=== PATIENT | male | born 1970 | race African-American/Black ===

== ENCOUNTER 2017-02-25 21:04 | Inpatient (IN) | payer SELFPAY ==
[2017-02-20] MEDS: FAMOTIDINE INJ/PF 20 MG/2 ML SDV IV SCH (10:00)
[2017-02-25] MEDS ORDERED: THIAMINE HCL 100 MG in NORMAL SALINE 50 ML IV ONE (21:48)
--- NOTE | 2017-02-25 21:48 | ER Document Report ---
ED Seizure - General Chief Complaint: Probable Seizure Stated Complaint: POSSIBLE SEIZURE Time Seen by Provider: 02/25/17 21:45 Mode of Arrival: Ambulatory Information source: Patient Notes: This is a 47-year-old man with a history of alcohol abuse, alcohol withdrawal seizures, DTs. Patient was brought into the emergency room because of a seizure. the patient's sister who is at the bedside states he's been trying to drink less lately because he has a job. - HPI Patient complains to provider of: History of seizures - Related to alcohol abuse Quality of pain: No pain Severity: None Pain Level: Denies Continued on arrival to ED: No Can details of seizure be obtained/verified: No Episode witnessed (by whom): No - patient states he was with a friend, this cannot be verified Current seizure medications: Other - He has taken Dilantin in the past, but is been told that it's alcohol withdrawal seizures. Preceding symptoms/context: denies: Recent alcohol intake History of: Other - Alcohol withdrawal seizures Character of seizure: Partial loss/conscious Post-ictal symptoms: Confusion Injuries: None - Related Data Allergies/Adverse Reactions: No Known Allergies Allergy (Verified 10/21/12 15:25) Past Medical History - General Information source: Patient - Social History Smoking Status: Unknown if Ever Smoked Cigarette use (# per day): No - he denies Chew tobacco use (# tins/day): No Frequency of alcohol use: Heavy Drug Abuse: Other - He denies Lives with: Family Family History: Reviewed & Not Pertinent Patient has suicidal ideation: No Patient has homicidal ideation: No - Past Medical History Cardiac Medical History: Reports: None Pulmonary Medical History: Reports: Hx Asthma, Hx Bronchitis Neurological Medical History: Reports: Hx Seizures Endocrine Medical History: Reports: None Renal/ Medical History: Reports: None Malignancy Medical History: Reports None GI Medical History: Reports: None Musculoskeltal Medical History: Reports None Skin Medical History: Reports None Psychiatric Medical History: Reports: None Traumatic Medical History: Reports: None Infectious Medical History: Reports: None Past Surgical History: Reports: Hx Orthopedic Surgery - right shoulder surgery - Immunizations Immunizations up to date: Yes Hx Diphtheria, Pertussis, Tetanus Vaccination: Yes Review of Systems - Review of Systems Constitutional: denies: Chills, Fever EENT: No symptoms reported Cardiovascular: No symptoms reported Respiratory: No symptoms reported Gastrointestinal: No symptoms reported Genitourinary: No symptoms reported Male Genitourinary: No symptoms reported Musculoskeletal: No symptoms reported Skin: No symptoms reported Hematologic/Lymphatic: No symptoms reported Neurological/Psychological: See HPI Physical Exam - Vital signs Vitals: Resp Pulse Ox 16 96 02/25/17 21:13 02/25/17 21:13 Notes: Physical exam: GENERAL: 47-year-old man, postictal, oriented 3, no acute distress. HEAD: Atraumatic, normocephalic. EYES: Pupils equal round and reactive to light, extraocular movements intact, sclera anicteric, conjunctiva are normal. ENT: TMs normal, nares patent, oropharynx clear without exudates. Moist mucous membranes. NECK: Normal range of motion, supple without lymphadenopathy or JVD. LUNGS: Breath sounds clear to auscultation bilaterally and equal. No wheezes rales or rhonchi. HEART: Regular rate and rhythm without murmurs, rubs or gallops. ABDOMEN: Soft, normoactive bowel sounds. No tenderness to palpation. No guarding, no rebound. No masses appreciated. EXTREMITIES: Normal range of motion, no pitting or edema. No clubbing or cyanosis. NEUROLOGICAL: Cranial nerves II through XII grossly intact. Normal speech, moving all extremities, lethargic PSYCH: Patient is postictal, lethargic SKIN: Warm, Dry, normal turgor, no rashes or lesions noted. Course - Vital Signs Vital signs: Temp Pulse Resp BP Pulse Ox 20 190/103 H 97 02/26/17 01:00 02/26/17 00:48 02/25/17 23:00 - Laboratory Result Diagrams: 02/26/17 00:05 02/26/17 00:05 Laboratory results interpreted by me: 02/25/17 02/25/17 02/25/17 21:17 21:17 21:17 RBC 2.81 L Hgb 9.2 L Hct 26.9 L Lymphocytes % 11.4 L Sodium 124.6 L Potassium 5.2 H Chloride 93 L Carbon Dioxide 18 L BUN 26 H Creatinine 2.73 H Est GFR ( Amer) 31 L Est GFR (Non-Af Amer) 25 L Glucose Magnesium 1.2 L* AST 84 H Alkaline Phosphatase 147 H Urine Protein Urine Ketones Urine Blood Phenytoin < 3.0 L 05/02/26/17 02/26/17 23:50 00:05 00:05 RBC 2.90 L Hgb 9.4 L Hct 28.0 L Lymphocytes % 12.8 L Sodium 125.0 L Potassium Chloride 95 L Carbon Dioxide 18 L BUN 27 H Creatinine 2.55 H Est GFR ( Amer) 33 L Est GFR (Non-Af Amer) 27 L Glucose 112 H Magnesium AST 77 H Alkaline Phosphatase 147 H Urine Protein >=500 H Urine Ketones TRACE H Urine Blood MODERATE H Phenytoin - Diagnostic Test Radiology reviewed: Image reviewed, Reports reviewed - CT of the head shows no acute bleed. CT of the abdomen shows an absent right kidney with a prominent left kidney. No obvious kidney stones. There is a moderate reticular nodularity in the left lower lobe which may be atypical pneumonia or chronic interstitial lung disease. He does have healing left rib fractures. - EKG Interpretation by Mn Rate: Normal Rhythm: NSR - EKG shows normal sinus rhythm with a ventricular rate of 86, no acute ST-T wave changes. QTC is 464. Critical Care Note - Critical Care Note Total time excluding time spent on procedures (mins): 120 Discharge - Discharge Clinical Impression: acute renal failure (1 kidney), hyponatremia, alcohol withdrawal seizure, anemia Condition: Stable Disposition: ADMITTED INPATIENT Admitting Provider: Hospitalist Unit Admitted: [facility]
[2017-02-25] MEDS ORDERED: MAGNESIUM SULFATE/D5W 100 ML IV ONE ×2 (21:49→22:30)
[2017-02-25] MEDS ORDERED: NORMAL SALINE 1000 ML 1,000 ML IV PRN ×2 (21:51→23:58)
[2017-02-25] MEDS ORDERED: FOLIC ACID 1 MG TABLET PO ONE (21:51)
[2017-02-25] MEDS ORDERED: LORAZEPAM 1 MG TABLET PO ONE (21:51)
[2017-02-25 22:02] LABS: ABSOLUTE BASOPHILS # (AUTO) 0.1 10^3/uL (0.0-0.2); ABSOLUTE EOSINOPHILS # (AUTO) 0.1 10^3/uL (0.0-0.6); ABSOLUTE LYMPHOCYTES (AUTO) 0.5 10^3/uL (0.5-4.7); ABSOLUTE MONOCYTES (AUTO) 0.4 10^3/uL (0.1-1.4); ABSOLUTE NEUT (AUTO) 3.2 10^3/uL (1.7-8.2); BASOPHILS % (AUTO) 1.4 % (0-2); EOSINOPHILS % (AUTO) 3.4 % (0-6); HEMATOCRIT 26.9 % (37.9-51.0); HEMOGLOBIN 9.2 g/dL (13.5-17.0); HGB HCT DIFFERENCE 0.7; LYMPHOCYTES % (AUTO) 11.4 % (13-45); MEAN CORPUSCULAR HEMOGLOBIN 32.7 pg (27.0-33.4); MEAN CORPUSCULAR HGB CONC 34.2 g/dL (32.0-36.0); MEAN CORPUSCULAR VOLUME 96 fl (80-97); MONOCYTES % (AUTO) 8.2 % (3-13); RED BLOOD COUNT 2.81 10^6/uL (4.35-5.55); RED CELL DISTRIBUTION WIDTH 13.7 % (11.5-14.0); SEGMENTED NEUTROPHILS % (AUTO) 75.6 % (42-78); WHITE BLOOD COUNT 4.3 10^3/uL (4.0-10.5)
[2017-02-25 22:22] LABS: ALANINE AMINOTRANSFERASE 55 U/L (21-72); ALBUMIN 3.9 g/dL (3.5-5.0); ALKALINE PHOSPHATASE 147 U/L (38-126); ANION GAP 14 (5-19); ASPARTATE AMINO TRANSFERASE 84 U/L (17-59); BILIRUBIN,DIRECT 0.4 mg/dL (0.0-0.4); BLOOD UREA NITROGEN 26 mg/dL (7-20); CALCIUM 9.5 mg/dL (8.4-10.2); CARBON DIOXIDE 18 mmol/L (22-30); CHLORIDE 93 mmol/L (98-107); CREATININE RESULT 2.73 mg/dL (0.52-1.25); GLUCOSE 107 mg/dL (75-110); POTASSIUM 5.2 mmol/L (3.6-5.0); SODIUM 124.6 mmol/L (137-145); TOTAL PROTEIN 7.2 g/dL (6.3-8.2)
[2017-02-25 22:30] LABS: MAGNESIUM 1.2 mg/dL (1.6-2.3)
[2017-02-25] MEDS ORDERED: THIAMINE HCL INJ 200 MG/2 ML VIAL ONE (23:15)
--- NOTE | 2017-02-25 23:55 | EKG REPORT ---
SEVERITY:- ABNORMAL ECG - SINUS RHYTHM PROBABLE LEFT ATRIAL ABNORMALITY PROBABLE LEFT VENTRICULAR HYPERTROPHY ST ELEV, PROBABLE NORMAL EARLY REPOL PATTERN : Confirmed by: Lopez Newman 25-Feb-2017 23:55:01
[2017-02-26 00:06] LABS: APPEARANCE,URINE CLEAR; BILIRUBIN,URINE NEGATIVE (NEGATIVE); GLUCOSE, URINE NEGATIVE (NEGATIVE); KETONES,URINE TRACE mg/dL (NEGATIVE); LEUKOCYTE ESTERASE,URINE NEGATIVE (NEGATIVE); NITRITE,URINE NEGATIVE (NEGATIVE); PROTEIN,URINE >=500 mg/dL (NEGATIVE); URINE SPECIFIC GRAVITY 1.008; UROBILINOGEN,URINE NEGATIVE mg/dL (<2.0)
[2017-02-26 00:22] LABS: URINE BARBITURATES SCREEN NEGATIVE; URINE METHADONE SCREEN NEGATIVE; URINE OPIATES LOW NEGATIVE; URINE PHENCYCLIDINE SCREEN NEGATIVE
[2017-02-26 00:23] LABS: ABSOLUTE EOSINOPHILS # (AUTO) 0.2 10^3/uL (0.0-0.6); ABSOLUTE LYMPHOCYTES (AUTO) 0.6 10^3/uL (0.5-4.7); ABSOLUTE MONOCYTES (AUTO) 0.4 10^3/uL (0.1-1.4); ABSOLUTE NEUT (AUTO) 3.2 10^3/uL (1.7-8.2); BASOPHILS % (AUTO) 1.1 % (0-2); EOSINOPHILS % (AUTO) 4.1 % (0-6); HEMOGLOBIN 9.4 g/dL (13.5-17.0); HGB HCT DIFFERENCE 0.2; LYMPHOCYTES % (AUTO) 12.8 % (13-45); MEAN CORPUSCULAR HEMOGLOBIN 32.5 pg (27.0-33.4); MEAN CORPUSCULAR HGB CONC 33.7 g/dL (32.0-36.0); MEAN CORPUSCULAR VOLUME 97 fl (80-97); MONOCYTES % (AUTO) 9.5 % (3-13); RED CELL DISTRIBUTION WIDTH 13.1 % (11.5-14.0); SEGMENTED NEUTROPHILS % (AUTO) 72.5 % (42-78); WHITE BLOOD COUNT 4.3 10^3/uL (4.0-10.5)
[2017-02-26 00:25] LABS: PROTHROMBIN TIME 13.3 SEC (11.4-15.4)
[2017-02-26 00:38] LABS: ALANINE AMINOTRANSFERASE 63 U/L (21-72); ALBUMIN 3.7 g/dL (3.5-5.0); ALKALINE PHOSPHATASE 147 U/L (38-126); ANION GAP 12 (5-19); ASPARTATE AMINO TRANSFERASE 77 U/L (17-59); BILIRUBIN,DIRECT 0.4 mg/dL (0.0-0.4); BLOOD UREA NITROGEN 27 mg/dL (7-20); CALCIUM 8.8 mg/dL (8.4-10.2); CARBON DIOXIDE 18 mmol/L (22-30); CHLORIDE 95 mmol/L (98-107); CREATININE RESULT 2.55 mg/dL (0.52-1.25); GLUCOSE 112 mg/dL (75-110); POTASSIUM 4.9 mmol/L (3.6-5.0); TOTAL PROTEIN 7.2 g/dL (6.3-8.2)
[2017-02-26 00:39] LABS: ALCOHOL < 10 mg/dL (NONE DETECTED)
[2017-02-26] MEDS ORDERED: CLONIDINE HCL 0.2 MG TABLET PO ONE (00:49)
[2017-02-26] MEDS ORDERED: LORAZEPAM INJ 2 MG/1 ML VIAL IV ONE (01:13)
[2017-02-26] MEDS ORDERED: LABETALOL HCL INJ 20 MG/4 ML DISP.SYRIN IV ONE (01:52)
[2017-02-26] MEDS ORDERED: MAGNESIUM SULFATE/D5W 100 ML IV ONE (03:13)
[2017-02-26] MEDS ORDERED: IPRATROPIUM/ALBUTEROL 0.5-2.5 MG/3 ML AMPUL NEB PRN (04:21)
[2017-02-26] MEDS ORDERED: GLUCAGON,HUMAN RECOMB 1 MG INJ SUBCUT PRN (04:23)
[2017-02-26] MEDS ORDERED: DEXTROSE 40% GEL 15 GM TUBE PO PRN ×2 (04:23)
[2017-02-26] MEDS ORDERED: NORMAL SALINE 1000 ML 1,000 ML IV PRN (04:23)
[2017-02-26] MEDS ORDERED: DEXTROSE 50%-WATER 25 GM/50 ML DISP.SYRIN IV PRN ×2 (04:23)
[2017-02-26] MEDS ORDERED: LORAZEPAM INJ 2 MG/1 ML VIAL IV PRN (04:25)
[2017-02-26] MEDS ORDERED: ACETAMINOPHEN 650 MG SUPP.RECT PR PRN (04:29)
--- NOTE | 2017-02-26 04:59 | PDOC H&P ---
History of Present Illness Admission Date/PCP: 02/26/17 02:28 PCP ?? Patient complains of: seizure History of Present Illness: RUCHI DE OLIVEIRA is a 47 year old -[place] male with history of alcohol abuse, alcohol withdrawal seizures, and delirium tremens who presents to the emergency room for evaluation of above complaint. Patient has been discussed with emergency room physician who evaluated the patient. Patient is oriented to location and year, but is not sure why he is in the ER and can't recall the events that led to his being brought to the emergency room. He thus is able to provide no history whatsoever in terms of acute or chronic events, review of systems, personal habits, family history, etc. No friends or family are present. Old inpatient records are reviewed. Emergency room physician notes are reviewed. 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 No further information available this point in time. No further seizure activity since arrival in the emergency room. Blood pressure has been rather elevated, but is beginning to respond to treatment so far. Hospitalized on our service the second through 07/22/2011 with final diagnoses including alcohol withdrawal delirium tremens, chronic alcoholism and alcohol withdrawal seizure, among other diagnoses. History and physical and discharge summary have been reviewed. . Laboratory results are listed in [facility] and are reviewed. X-ray summary results are listed below, with full report(s) reviewed. . EKG's reviewed. No old EKGs available for comparison. Emergency room physician stated that earlier patient denied pain. When I asked him if he was having any pain, he did not respond. Social history/personal habits: No information available this point in time. Allergies/adverse reactions NKDA. Home medications Home medications initially autopopulated into [facility] [place] may not accurately reflect patient's true medications, dosages, and/or frequencies. automobile technician to reconcile medications. Unfortunately, patient can't provide any information related to his medications/ dosages/frequencies. REVIEW OF SYSTEMS: See history and present illness. No further information available this point in time. PHYSICAL EXAMINATION: 5 feet 5 inches tall. 63.5 kg. BMI 23.3 kg/m. Blood pressure 176/99. Respirations are 20 and unlabored. 100% saturation on room air. Pulse 80 and regular. Temperature not recorded on chart; skin feels normothermic. Thin somewhat chronically ill-appearing -[place] male who appears a bit older than his stated age. Drowsy. At times mumbles incoherently, but typically does not answer questions at all. Maintaining airway well. Skin is warm and dry. No grossly obvious evidence of rash in areas of skin examined. No subcutaneous nodules palpated. ENT: Hearing difficult to adequately evaluate due to his current status. Does not protrude tongue on request. Eyes: No scleral icterus. Pupils equal and reactive to light at 4 mm. [place] conjunctivae. No raccoon eyes. Neck is supple and nontender to gentle active range of motion and palpation. Midline trachea. No palpable thyroid nodule mass enlargement or tenderness. Lymphatic: No palpable cervical or clavicular nodes. Neck and lymphatic exams limited by patient body habitus. Psychiatric: Can't be adequately evaluated due to his current status. See history and present illness. Lungs: Auscultation reveals equal breath sounds bilaterally. No use of accessory respiratory muscles. Faint brief early inspiratory and expiratory wheezing diffusely bilaterally, perhaps a bit more noticeable on the left. Cardiovascular: Heart regular rate and rhythm, without gallop murmur or rub. No carotid or abdominal aortic bruits. No ankle or pedal edema. palpable dorsalis pedis pulses. Abdomen: soft, somewhat distended nontender with positive bowel sounds. Unable to adequately evaluate abdomen for masses or organomegaly due to distention. Extremities: Hands and feet are warm and dry. No calf tenderness to compression. No grossly obvious visual evidence of calf or thigh swelling. Gentle manipulation of upper and lower extremities fails to reveal any obvious evidence of injury or instability to involved major joints. Neurologic: Moves all 4 extremities grossly normally. Patellar reflexes absent. Absent Babinski. Light touch can't be adequately evaluated due to his current status. No rigidity. No ankle clonus. No nystagmus. Past Medical History Past Medical History: Patient can provide no information related to his past medical history; information obtained from review of old records. Cardiac Medical History: Reports: None Pulmonary Medical History: Reports: Asthma, Bronchitis Neurological Medical History: Reports: Seizures - Alcohol withdrawal. Endocrine Medical History: Reports: None Renal/ Medical History: Reports: None Malignancy Medical History: Reports: None GI Medical History: Reports: None Musculoskeltal Medical History: Reports: None Skin Medical History: Reports: None Psychiatric Medical History: Reports: None Traumatic Medical History: Reports: None Infectious Medical History: Reports: None Past Surgical History Past Surgical History: Reports: Orthopedic Surgery - right shoulder surgery Social History Information Source: Emergency Med Personnel, [facility] Records Lives with: Family Smoking Status: Unknown if Ever Smoked Frequency of Alcohol Use: Heavy Drugs: None - Unknown if patient uses illicit drugs or abuses prescription drugs.. - Advance Directive Resuscitation Status: Full Code Surrogate healthcare decision maker:: Uncertain; probably his sister Family History Family History: Reviewed & Not Pertinent Parental Family History Reviewed: No - patient can't provide any information. Children Family History Reviewed: No - patient can't provide any information. Sibling(s) Family History Reviewed.: No - patient can't provide any information. Medication/Allergy Home Medications: No Home Medications 02/26/17 Allergies/Adverse Reactions: No Known Allergies Allergy (Verified 10/21/12 15:25) Physical Exam Vital Signs: Temp Pulse Resp BP Pulse Ox 15 174/105 H 100 02/26/17 03:00 02/26/17 02:51 02/26/17 02:51 Intake & Output 02/25/17 02/26/17 02/27/17 00:59 00:59 00:59 Weight 63.503 kg Results Impressions: Head CT 02/25/17 23:42 IMPRESSION: No acute findings. Chest X-Ray 02/25/17 23:43 IMPRESSION: Right 7th and 8th posterior rib deformities/fracture of indeterminate age; not seen well on prior radiographs from November 2011 and July 2011. Limited or Localized CT 02/26/17 00:02 IMPRESSION: 1. Moderate reticular nodularity of the left lower lobe may indicate atypical pneumonia or chronic interstitial lung disease. 2. Healing left lower rib fractures. 3. Cholelithiasis. 4. Absent right kidney. Assessment & Plan - Diagnosis (1) ARF (acute renal failure) Qualifiers: Acute renal failure type: unspecified Qualified Code(s): N17.9 - Acute kidney failure, unspecified Is this a current diagnosis for this admission?: YesPlan: Previous labs 2011. Per Dr. Gonzalez, interpreting radiologist of CT, no evidence of hydronephrosis of the remaining left kidney. Right kidney not identified. IV fluids. Serial chemistry. Consider nephrology consult. (2) Abnormal CT scan, lung Is this a current diagnosis for this admission?: YesPlan: No outward clinical evidence of pneumonia. Outpatient follow-up. (3) Alcohol withdrawal seizure Qualifiers: Complication of substance-induced condition: with perceptual disturbance Qualified Code(s): F10.232 - Alcohol dependence with withdrawal with perceptual disturbance Is this a current diagnosis for this admission?: YesPlan: Seizure precautions. Alcohol withdrawal protocol. Knee high SCDs for DVT prophylaxis, along with subcutaneous heparin. Time spent in evaluation and management of patient: 61 minutes. (4) Anemia Qualifiers: Anemia type: unspecified type Qualified Code(s): D64.9 - Anemia, unspecified Is this a current diagnosis for this admission?: YesPlan: Prior labs 2011. Likely due at least in part to chronic disease. Follow-up CBC with differential. No need for transfusion at present time. (5) Elevated LFTs Is this a current diagnosis for this admission?: YesPlan: Likely due to alcoholic liver disease. Follow-up chemistry. (6) Hypertensive urgency Is this a current diagnosis for this admission?: YesPlan: Gradual blood pressure control. Parameters entered into admitting orders. (7) Hypomagnesemia Is this a current diagnosis for this admission?: YesPlan: Replace when necessary. Follow-up magnesium level. (8) Wheezing Is this a current diagnosis for this admission?: YesPlan: . When necessary DuoNeb. (9) Hyponatremia Is this a current diagnosis for this admission?: YesPlan: Likely due to underlying alcohol abuse. Follow-up chemistry. (10) Solitary kidney Is this a current diagnosis for this admission?: Yes (11) Abnormal EKG Is this a current diagnosis for this admission?: YesPlan: serial troponin - Inpatient Certification Based on my medical assessment, after consideration of the patient's comorbidities, presenting symptoms, or acuity I expect that the services needed warrant INPATIENT care.: Yes I certify that my determination is in accordance with my understanding of Medicare's requirements for reasonable and necessary INPATIENT services [42 CFR 412.3e].: Yes Medical Necessity: Significant Comorbidiites Make Outpatient Treatment Too Risky , Need Close Monitoring Due to Risk of Patient Decompensation, Need For IV Fluids, Need For Continuous Telemetry Monitoring, Need for Nebulizer Therapy and Monitoring of Response, Risk of Complication if Not Cared For in Hospital, Risk of Diagnosis Which Will Require Inpatient Eval/Care/Monitoring Post Hospital Care: D/C or Transfer Summary
[2017-02-26 05:47] LABS: ABSOLUTE EOSINOPHILS # (AUTO) 0.2 10^3/uL (0.0-0.6); ABSOLUTE LYMPHOCYTES (AUTO) 0.7 10^3/uL (0.5-4.7); ABSOLUTE MONOCYTES (AUTO) 0.7 10^3/uL (0.1-1.4); ABSOLUTE NEUT (AUTO) 4.2 10^3/uL (1.7-8.2); BASOPHILS % (AUTO) 0.7 % (0-2); EOSINOPHILS % (AUTO) 4.3 % (0-6); HEMATOCRIT 27.1 % (37.9-51.0); HEMOGLOBIN 9.4 g/dL (13.5-17.0); HGB HCT DIFFERENCE 1.1; LYMPHOCYTES % (AUTO) 11.7 % (13-45); MEAN CORPUSCULAR HEMOGLOBIN 33.4 pg (27.0-33.4); MEAN CORPUSCULAR HGB CONC 34.5 g/dL (32.0-36.0); MEAN CORPUSCULAR VOLUME 97 fl (80-97); MONOCYTES % (AUTO) 11.1 % (3-13); RED CELL DISTRIBUTION WIDTH 13.3 % (11.5-14.0); SEGMENTED NEUTROPHILS % (AUTO) 72.2 % (42-78); WHITE BLOOD COUNT 5.8 10^3/uL (4.0-10.5)
[2017-02-26 06:04] LABS: ALANINE AMINOTRANSFERASE 53 U/L (21-72); ALBUMIN 3.6 g/dL (3.5-5.0); ALKALINE PHOSPHATASE 137 U/L (38-126); ANION GAP 10 (5-19); ASPARTATE AMINO TRANSFERASE 71 U/L (17-59); BILIRUBIN,DIRECT 0.3 mg/dL (0.0-0.4); BILIRUBIN,TOTAL 1.2 mg/dL (0.2-1.3); BLOOD UREA NITROGEN 25 mg/dL (7-20); CALCIUM 8.7 mg/dL (8.4-10.2); CARBON DIOXIDE 20 mmol/L (22-30); CHLORIDE 99 mmol/L (98-107); CREATININE RESULT 2.41 mg/dL (0.52-1.25); GLUCOSE 85 mg/dL (75-110); PHOSPHORUS 4.6 mg/dL (2.5-4.5); POTASSIUM 4.6 mmol/L (3.6-5.0); SODIUM 128.9 mmol/L (137-145); TOTAL PROTEIN 6.9 g/dL (6.3-8.2)
[2017-02-26] MEDS: LORAZEPAM INJ 2 MG/1 ML VIAL (TAPER DOSING) IV SCH ×4 (06:37→23:55)
[2017-02-26] MEDS ORDERED: DEXTROSE 5%-NORMAL SALINE 1,000 ML IV PRN (10:07)
--- NOTE | 2017-02-26 10:41 | EKG REPORT ---
SEVERITY:- BORDERLINE ECG - SINUS RHYTHM PROBABLE LEFT ATRIAL ABNORMALITY ST ELEV, PROBABLE NORMAL EARLY REPOL PATTERN BORDERLINE PROLONGED QT INTERVAL : Confirmed by: Arina Pan MD 26-Feb-2017 10:40:59
[2017-02-26] MEDS: NORMAL SALINE 1000 ML 1,000 ML with THIAMINE HCL 100 MG, MVI, ADULT NO.1 WITH VIT K 10 ... IV SCH ×4 (11:07)
[2017-02-26] MEDS: FAMOTIDINE INJ/PF 20 MG/2 ML SDV IV SCH ×2 (11:08→23:00)
[2017-02-26] MEDS: HEPARIN SOD (PORCINE) 5,000 UNIT/ML 1 ML SYRINGE SUBCUT SCH ×2 (11:08→23:00)
--- NOTE | 2017-02-26 12:38 | PDOC PROGRESS REPORT ---
Subjective Progress Note for:: 02/26/17 Subjective:: No issues reported by nursing staff. Patient remains very confused and will not talk to me. Physical Exam Vital Signs: Temp Pulse Resp BP Pulse Ox 97.5 F 61 16 149/83 H 94 02/26/17 07:24 02/26/17 08:00 02/26/17 08:00 02/26/17 07:24 02/26/17 08:00 Intake & Output 02/25/17 02/26/17 02/27/17 06:59 06:59 06:59 Intake Total 420 Output Total 100 Balance 320 Weight 58.5 kg GENERAL: No acute distress HEENT: Conjunctiva clear, nonicteric, moist mucous membranes, no JVD, midline trachea RESPIRATORY: Clear to auscultation bilaterally, no wheezes, no rhonchi CARDIAC: Regular rate and rhythm, no murmurs/gallops/rubs ABDOMEN: Soft, nondistended, nontender, positive bowel sounds, no rebound, no guarding EXTREMETIES: No edema, cyanosis, clubbing NEUROLOGIC: Alert, disoriented, CN's grossly intact, no focal deficits SKIN: No rash, wounds PSYCH: Unusual affect Results Laboratory Results: 02/26/17 05:37 02/26/17 05:37 02/26/17 02/26/17 02/26/17 05:37 05:37 05:37 WBC 5.8 RBC 2.80 L Hgb 9.4 L Hct 27.1 L MCV 97 MCH 33.4 MCHC 34.5 RDW 13.3 Plt Count 243 Seg Neutrophils % 72.2 Lymphocytes % 11.7 L Monocytes % 11.1 Eosinophils % 4.3 Basophils % 0.7 Absolute Neutrophils 4.2 Absolute Lymphocytes 0.7 Absolute Monocytes 0.7 Absolute Eosinophils 0.2 Absolute Basophils 0.0 Retic Count (auto) 2.77 Absolute Retic 0.077 Sodium 128.9 L Potassium 4.6 Chloride 99 Carbon Dioxide 20 L Anion Gap 10 BUN 25 H Creatinine 2.41 H Est GFR ( Amer) 35 L Est GFR (Non-Af Amer) 29 L Glucose 85 Calcium 8.7 Phosphorus 4.6 H Magnesium 2.0 Iron 113.1 TIBC 256 % Saturation 44 Ferritin 111.00 Total Bilirubin 1.2 AST 71 H ALT 53 Alkaline Phosphatase 137 H Ammonia < 8.7 L Total Protein 6.9 Albumin 3.6 Vitamin B12 467.0 Folate 13.90 02/26/17 05:37 Troponin I 0.047 Impressions: Head CT 02/25/17 23:42 IMPRESSION: No acute findings. Chest X-Ray 02/25/17 23:43 IMPRESSION: Right 7th and 8th posterior rib deformities/fracture of indeterminate age; not seen well on prior radiographs from November 2011 and July 2011. Limited or Localized CT 02/26/17 00:02 IMPRESSION: 1. Moderate reticular nodularity of the left lower lobe may indicate atypical pneumonia or chronic interstitial lung disease. 2. Healing left lower rib fractures. 3. Cholelithiasis. 4. Absent right kidney. Assessment & Plan - Diagnosis (1) Alcohol withdrawal seizure Qualifiers: Complication of substance-induced condition: with perceptual disturbance Qualified Code(s): F10.232 - Alcohol dependence with withdrawal with perceptual disturbance Is this a current diagnosis for this admission?: YesPlan: Continue seizure cautions. Continue alcohol withdrawal treatment with Ativan. Hypomagnesemia treated. (2) Acute encephalopathy Is this a current diagnosis for this admission?: YesPlan: Likely related to postictal state and acute alcohol withdrawal. Continue supportive care. Continue nothing by mouth status. Continue IV fluids. Thiamine supplementation. (3) ARF (acute renal failure) Qualifiers: Acute renal failure type: unspecified Qualified Code(s): N17.9 - Acute kidney failure, unspecified Is this a current diagnosis for this admission?: YesPlan: Continue IV fluids. Check renal ultrasound. Repeat labs in the morning. (4) Abnormal EKG Is this a current diagnosis for this admission?: YesPlan: Likely secondary to early repolarization changes. (5) Anemia Qualifiers: Anemia type: unspecified type Qualified Code(s): D64.9 - Anemia, unspecified Is this a current diagnosis for this admission?: YesPlan: Iron, B-12, folic acid level normal. Possibly secondary to malnutrition. (6) Hyponatremia Is this a current diagnosis for this admission?: YesPlan: Likely secondary to chronic alcohol abuse. Continue IV normal saline while nothing by mouth. Repeat labs in the morning. (7) Solitary kidney Is this a current diagnosis for this admission?: YesPlan: Patient has absent right kidney. Obtain renal ultrasound of left kidney given acute renal failure. Avoid nephrotoxic medication. (8) Underweight Is this a current diagnosis for this admission?: Yes - Time Time Spent with patient: 35 or more minutes
[2017-02-26 14:04] LABS: ADD HIVPANEL? NO; HIV (1 AND 2) ANTIBODY NEGATIVE (NEGATIVE)
[2017-02-27] MEDS: HEPARIN SOD (PORCINE) 5,000 UNIT/ML 1 ML SYRINGE SUBCUT SCH ×2 (10:00→23:01)
[2017-02-27] MEDS: NORMAL SALINE 1000 ML 1,000 ML with THIAMINE HCL 100 MG, MVI, ADULT NO.1 WITH VIT K 10 ... IV SCH ×4 (10:00)
[2017-02-27] MEDS ORDERED: HALOPERIDOL LACTATE INJ 5 MG/1 ML VIAL ONE (11:53)
[2017-02-27] MEDS ORDERED: HYDRALAZINE HCL INJ/PF 20 MG/1 ML SDV ONE (17:30)
[2017-02-27] MEDS: FAMOTIDINE INJ/PF 20 MG/2 ML SDV IV SCH (23:00)
[2017-02-28] MEDS: LORAZEPAM INJ 2 MG/1 ML VIAL (TAPER DOSING) IV SCH ×4 (05:20→23:33)
[2017-02-28 06:41] LABS: HEMATOCRIT 29.1 % (37.9-51.0); HEMOGLOBIN 9.9 g/dL (13.5-17.0); HGB HCT DIFFERENCE 0.6; MEAN CORPUSCULAR HEMOGLOBIN 33.3 pg (27.0-33.4); MEAN CORPUSCULAR VOLUME 98 fl (80-97); RED BLOOD COUNT 2.98 10^6/uL (4.35-5.55); RED CELL DISTRIBUTION WIDTH 14.1 % (11.5-14.0); WHITE BLOOD COUNT 6.1 10^3/uL (4.0-10.5)
[2017-02-28 06:59] LABS: ALANINE AMINOTRANSFERASE 60 U/L (21-72); ALBUMIN 3.8 g/dL (3.5-5.0); ALKALINE PHOSPHATASE 149 U/L (38-126); ANION GAP 15 (5-19); ASPARTATE AMINO TRANSFERASE 67 U/L (17-59); BILIRUBIN,DIRECT 0.5 mg/dL (0.0-0.4); BILIRUBIN,TOTAL 1.6 mg/dL (0.2-1.3); BLOOD UREA NITROGEN 21 mg/dL (7-20); CALCIUM 9.4 mg/dL (8.4-10.2); CARBON DIOXIDE 17 mmol/L (22-30); CHLORIDE 109 mmol/L (98-107); CREATININE RESULT 2.33 mg/dL (0.52-1.25); GLUCOSE 108 mg/dL (75-110); MAGNESIUM 1.5 mg/dL (1.6-2.3); SODIUM 141.1 mmol/L (137-145); TOTAL PROTEIN 7.2 g/dL (6.3-8.2)
[2017-02-28 07:57] LABS: ABSOLUTE EOSINOPHILS # (AUTO) 0.4 10^3/uL (0.0-0.6); ABSOLUTE LYMPHOCYTES (AUTO) 0.9 10^3/uL (0.5-4.7); ABSOLUTE MONOCYTES (AUTO) 0.4 10^3/uL (0.1-1.4); ABSOLUTE NEUT (AUTO) 2.6 10^3/uL (1.7-8.2); BASOPHILS % (AUTO) 0.8 % (0-2); EOSINOPHILS % (AUTO) 8.7 % (0-6); HEMATOCRIT 25.2 % (37.9-51.0); HEMOGLOBIN 8.7 g/dL (13.5-17.0); HGB HCT DIFFERENCE 0.9; MEAN CORPUSCULAR HEMOGLOBIN 33.4 pg (27.0-33.4); MEAN CORPUSCULAR HGB CONC 34.7 g/dL (32.0-36.0); MEAN CORPUSCULAR VOLUME 96 fl (80-97); MONOCYTES % (AUTO) 8.3 % (3-13); RED BLOOD COUNT 2.62 10^6/uL (4.35-5.55); RED CELL DISTRIBUTION WIDTH 13.9 % (11.5-14.0); SEGMENTED NEUTROPHILS % (AUTO) 60.2 % (42-78); WHITE BLOOD COUNT 4.3 10^3/uL (4.0-10.5)
--- NOTE | 2017-02-28 08:32 | PROGRESS NOTE E ---
Progress Note NAME: RUCHI DE OLIVEIRA : 1970 AGE: 47Y DATE: 02/27/2017 ROOM: 307 TIME SPENT MANAGING PATIENT: Thirty-five minutes. SUBJECTIVE: The patient is in overt DTs. He has pulled out his IV and wandering around the room, trying to jump over his bed. He has been resistant to having another IV placed. I cannot obtain a reasonable history from patient, as he is psychotic from acute DTs. OBJECTIVE: VITAL SIGNS: Temperature 97.8, blood pressure 179/84, pulse 83, respirations 16, O2 sats 100% on room air. GENERAL: The patient is agitated and confused. HEENT: Oropharynx has moist mucous membranes. RESPIRATORY: Clear to auscultation. CARDIAC: Regular rate and rhythm. ABDOMEN: Soft, nontender. EXTREMITIES: Have no edema. LABORATORY DATA: White blood count 4.3, hemoglobin 8.7, platelets 232. Sodium 134, potassium 4.1, chloride 108, bicarb 17, BUN 23, creatinine 2.1. AST is 64, ALT 52, total bili of 1.56. ASSESSMENT AND PLAN: 1. ENCEPHALOPATHY SECONDARY TO ACUTE DTs. The patient will require chemical and physical restraints and 24/7 sitter. 2. ACUTE ALCOHOL WITHDRAWAL. We will put patient on Ativan p.r.n. 3. ACUTE KIDNEY INJURY. 4. ELEVATED LIVER FUNCTION TESTS. 5. ELEVATED BLOOD PRESSURE LIKELY SECONDARY TO ACUTE ALCOHOL WITHDRAWAL. 6. ANEMIA. 7. HYPONATREMIA LIKELY SECONDARY TO ALCOHOL ABUSE. DICTATING PHYSICIAN: CHEMO MOYER M.D. [id number] PHY#: [id number] [id number] JOB#: [id number] ACCT: [id number] cc: >
[2017-02-28] MEDS: HEPARIN SOD (PORCINE) 5,000 UNIT/ML 1 ML SYRINGE SUBCUT SCH ×2 (09:59→21:59)
[2017-02-28] MEDS: FAMOTIDINE INJ/PF 20 MG/2 ML SDV IV SCH (10:00)
[2017-02-28] MEDS: NORMAL SALINE 1000 ML 1,000 ML with THIAMINE HCL 100 MG, MVI, ADULT NO.1 WITH VIT K 10 ... IV SCH ×4 (10:31)
--- NOTE | 2017-02-28 12:45 | Physician Advisory Note ---
Physician Advisor ProgressNote .: Pursuant to the plan for [facility], I have reviewed the medical record for this patient. Physician Advisor Statement: Possible documentation opportunities if attending agrees: 1. "Acute metabolic acidosis due to ARF" 2. "underweight with protein-calorie malnutrition [state mild, mod, or severe] with BMI 19.3, ____[?wt loss, ?appetite loss, ]" [if possible, give specifics on intake, wt loss, loss of SQ fat & muscle mass, diminished hand casino shift manager strength, & clinical importance such as (A) nutritional assessment ordered, (B) modified diet or supplements ordered, (C) additional labs ordered, (D) prolonged wound healing time, (E) delayed infxn clearance] As always, if concerned about any unstable VS or abnormal labs, please comment on them & note what doing about them, & please document each day the potential clinical problems you are concerned could occur if pt not kept in hospital for tx at this time. Thanks for your help with documentation accuracy/specificity improvement! Kimberly Monroe MD [facility] Physician Advisor, Fellow of [facility]
[2017-02-28] MEDS ORDERED: AMLODIPINE BESYLATE 5 MG TABLET PO ONE (14:01)
[2017-02-28] MEDS ORDERED: DEXTROSE 5%-1/2 NORMAL SALINE 1,000 ML IV PRN (14:07)
[2017-02-28] MEDS: MAGNESIUM SULFATE/D5W 100 ML IV SCH ×2 (14:29→16:43)
[2017-02-28] MEDS ORDERED: NICOTINE 14 MG/24 HR PATCH.TD24 TD ONE (14:30)
--- NOTE | 2017-02-28 15:09 | PROGRESS NOTE E ---
Progress Note NAME: RUCHI DE OLIVEIRA : 1970 AGE: 47Y DATE: 02/28/2017 ROOM: 307 TIME SPENT: Time spent managing patient was 25 minutes. SUBJECTIVE: The patient remains intermittently confused and agitated. He had been administered Ativan prior to my evaluation, so he is relatively calm, siting on the edge of the bed, but does try to frequently get up without assistance and is somewhat ataxic. In discussion with patient, it sounds like he has been drinking since early in life. He states that this was really precipitated by his brother's tragic whenever he was 20. It sounds like when the patient was 20, his brother was killed in front of him during a shooting. The patient gets tearful and cries when discussing this issue. REVIEW OF SYSTEMS: The patient denies fever, chills, headache, chest pain, shortness of breath. OBJECTIVE: VITAL SIGNS: Temperature 97.8, blood pressure is 208/108, pulse 67, respirations 19. GENERAL: The patient is alert. He is oriented to person, place, year, month. He is a little anxious and as mentioned, tried to get up during exam without assistance and for no apparent reason. HEENT: Sclerae are nonicteric. Oropharynx has moist mucous membranes. NECK: No JVD. RESPIRATORY: Clear to auscultation bilaterally. CARDIAC: Regular rate and rhythm. No murmurs, gallops, or rubs. ABDOMEN: Soft, nontender, and nondistended. Positive bowel sounds. No rebound. No guarding. EXTREMITIES: No edema, cyanosis, or clubbing. NEUROLOGIC: Cranial nerves intact. Good strength and sensation in all 4 extremities. DIAGNOSTIC DATA: Labs: White blood count 6.1, hemoglobin 9.9, hematocrit 29.1, platelets 273. Sodium 141, potassium 4.1, chloride 109, bicarb 17, BUN 21, creatinine 2.33, glucose 108, total bilirubin 1.6, AST 67 (trending down), ALT 60, alk phos 140. ASSESSMENT AND PLAN: 1. ALCOHOL WITHDRAWAL SEIZURE. The patient is on seizure precautions. Continue withdrawal protocol with Ativan. Continue to monitor and treat hypomagnesemia. 2. ACUTE ENCEPHALOPATHY SECONDARY TO ALCOHOL WITHDRAWAL. THE PATIENT IS, AT THIS TIME, ALERT AND ORIENTED TO PERSON, PLACE, TIME, BUT DOES NOT SEEM TO BE ABLE TO MAKE COMPETENT/INFORMED DECISIONS DUE TO POOR INSIGHT AND JUDGMENT. Continue supportive care. Continue thiamine supplementation. 3. UNCONTROLLED HYPERTENSION. Start patient on Norvasc 5 mg daily. Continue p.r.n. IV labetalol. 4. HYPOMAGNESEMIA. Replace. 5. HYPONATREMIA. Resolved. Continue to monitor. 6. 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 Avoid nephrotoxic medications. 7. UNDERWEIGHT. 8. TOBACCO ABUSE. Order Nicoderm patch. 9. POSSIBLE PTSD. We will consult Psychology for evaluation. 10. RENAL FAILURE. THIS APPEARS TO BE ACUTE IN NATURE AND IS IMPROVING SLOWLY. MENTIONED ABOVE, THE PATIENT IS MISSING HIS RIGHT KIDNEY. RENAL ULTRASOUND SHOWS CHRONIC MEDICAL RENAL DISEASE PATTERN OF LEFT KIDNEY. DICTATING PHYSICIAN: CHEMO MOYER M.D. [id number] PHY#: [id number] ID: [id number] JOB#: [id number] ACCT: [id number] cc: >
[2017-02-28] MEDS: LABETALOL HCL INJ 20 MG/4 ML DISP.SYRIN IV PRN (21:01)
[2017-03-01 08:13] LABS: ABSOLUTE EOSINOPHILS # (AUTO) 0.4 10^3/uL (0.0-0.6); ABSOLUTE LYMPHOCYTES (AUTO) 1.2 10^3/uL (0.5-4.7); ABSOLUTE MONOCYTES (AUTO) 0.6 10^3/uL (0.1-1.4); ABSOLUTE NEUT (AUTO) 4.8 10^3/uL (1.7-8.2); BASOPHILS % (AUTO) 0.5 % (0-2); EOSINOPHILS % (AUTO) 5.7 % (0-6); HEMATOCRIT 26.4 % (37.9-51.0); HEMOGLOBIN 8.8 g/dL (13.5-17.0); LYMPHOCYTES % (AUTO) 17.4 % (13-45); MEAN CORPUSCULAR HGB CONC 33.4 g/dL (32.0-36.0); MEAN CORPUSCULAR VOLUME 99 fl (80-97); MONOCYTES % (AUTO) 8.3 % (3-13); RED BLOOD COUNT 2.68 10^6/uL (4.35-5.55); SEGMENTED NEUTROPHILS % (AUTO) 68.1 % (42-78)
[2017-03-01 08:23] LABS: ALANINE AMINOTRANSFERASE 51 U/L (21-72); ALBUMIN 3.6 g/dL (3.5-5.0); ALKALINE PHOSPHATASE 149 U/L (38-126); ANION GAP 12 (5-19); ASPARTATE AMINO TRANSFERASE 48 U/L (17-59); BILIRUBIN,DIRECT 0.3 mg/dL (0.0-0.4); BILIRUBIN,TOTAL 1.6 mg/dL (0.2-1.3); BLOOD UREA NITROGEN 20 mg/dL (7-20); CALCIUM 9.5 mg/dL (8.4-10.2); CARBON DIOXIDE 21 mmol/L (22-30); CHLORIDE 109 mmol/L (98-107); CREATININE RESULT 2.28 mg/dL (0.52-1.25); GLUCOSE 105 mg/dL (75-110); MAGNESIUM 1.6 mg/dL (1.6-2.3); POTASSIUM 3.7 mmol/L (3.6-5.0); SODIUM 142.4 mmol/L (137-145)
[2017-03-01 09:54] LABS: ALKALINE PHOSPHATASE 128 U/L (38-126); ANION GAP 10 (5-19); ASPARTATE AMINO TRANSFERASE 64 U/L (17-59); BLOOD UREA NITROGEN 23 mg/dL (7-20); CARBON DIOXIDE 17 mmol/L (22-30); CHLORIDE 108 mmol/L (98-107); CREATININE RESULT 2.12 mg/dL (0.52-1.25); GLUCOSE 76 mg/dL (75-110); POTASSIUM 4.1 mmol/L (3.6-5.0); SODIUM 134.6 mmol/L (137-145)
[2017-03-01 09:55] LABS: ALANINE AMINOTRANSFERASE 52 U/L (21-72); BILIRUBIN,DIRECT 0.5 mg/dL (0.0-0.4); BILIRUBIN,TOTAL 1.6 mg/dL (0.2-1.3); MAGNESIUM 1.7 mg/dL (1.6-2.3); TOTAL PROTEIN 6.3 g/dL (6.3-8.2)
[2017-03-01] MEDS ORDERED: NICOTINE 14 MG/24 HR PATCH.TD24 TD SCH (10:00)
[2017-03-01] MEDS ORDERED: THIAMINE HCL 100 MG TABLET PO SCH (10:00)
[2017-03-01] MEDS: AMLODIPINE BESYLATE 5 MG TABLET PO SCH (10:08)
[2017-03-01] MEDS: HEPARIN SOD (PORCINE) 5,000 UNIT/ML 1 ML SYRINGE SUBCUT SCH ×2 (10:08→21:43)
--- NOTE | 2017-03-01 13:22 | PSYCHOLOGICAL NOTE ---
Psych Note - Psych Note Psych Note: RUCHI DE OLIVEIRA is a 47 year old -[place] male with history of alcohol abuse, alcohol withdrawal seizures, and delirium tremens who presents to the emergency room for evaluation of above complaint. Patient states he has back problems, has a jose in his arm, and was in the for 2-3 years "that was back in the early 90s." He disclosed that he did not just start a new job, the [employer] job was "a long time ago" 4-5 years ago. He states he has been trying to "get money from the government" and was able to clarify he has been attempting to get disability but has been unsuccessful. He disclosed that he suffers from seizures and the onset is normally from the heat or anger. He denies suicidal ideation and when asked about homicidal ideation he state; "there are different types of anger....the kind that's 'I'll kill you' and then there is the kind that's like 'Mother,I 'll kill you'" patient states he would not actually kill someone. Patient denies alcoholism and denies auditory and visual hallucinations. Patient states he is not interested in resources for sobriety. Clinician notes the patient's attending nurse came in and asked what the patient wanted for breakfast, patient's presentation changed. He started to demonstrate orientation difficulties, demonstrating confusion with what she was asking and conversational speech became unintelligible. Patient asked for gin with is breakfast. Once the attending nurse left, the patient was able to engage with the patient; however, orientation to circumstance was still suffering. Patient stated "thank you from talking with me, I hope you can help me with my disability." It is noted that patient no longer demonstrated confusion or had unintelligible conversational speech. Patient is alert and orientated to person. Orientation to time place and circumstance questionable. Mood is euthymic with congruent affect. Denies suicidal and homicidal ideation. Patient denies auditory visual hallucinations. Patient is not demonstrating any behavior to indicate responding to internal stimuli. I.e. making good eye contact and linear conversation. No delusions are noted at this time; clinician notes patient information does need to be verified. Patch was well-maintained. Intellectual abilities appear to be within average range. Thought process is organized and linear however does wax and wane. Attention and concentration are fair. Insight, judgment, impulse control are poor. 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 Patient is demonstrating waxing and waning of orienation. there is a reported history of delirium secondary to alcohol withdrawal. It is currently unclear the cause of the patient's current presentation and possible psychosis. Re-evaluation will be conducted. Dr. Sierra was consulted on the care and management of this patient; attending physician is in agreement with recommendations and disposition.
[2017-03-01] MEDS ORDERED: OLANZAPINE INJ/PF 10 MG SDV IM ONE (13:30)
[2017-03-01] MEDS ORDERED: LORAZEPAM 1 MG TABLET PO PRN (14:03)
[2017-03-01] MEDS ORDERED: DIPHENHYDRAMINE HCL 50 MG CAPSULE PO ONE (14:30)
[2017-03-01] MEDS ORDERED: CLONIDINE 0.1 MG/24 HR PATCH.TDWK TD ONE (15:00)
[2017-03-01] MEDS: LORAZEPAM 24 MG/240 ML BAG IV PRN ×2 (16:33→22:23)
[2017-03-01] MEDS: POTASSI CL 20 MEQ/D5-1/2NS 1L 1,000 ML IV PRN (16:51)
--- NOTE | 2017-03-01 17:39 | PROGRESS NOTE E ---
Progress Note NAME: RUCHI DE OLIVEIRA : 1970 AGE: 47Y DATE: 03/01/2017 ROOM: 609 TIME SPENT MANAGING PATIENT: Thirty-five minutes. SUBJECTIVE: The patient has been completely psychotic, agitated, and combative over the past 24 hours. He has pulled out his IV, tried to hit nursing staff. He keeps trying to leave his bed and room without assistance. I cannot obtain a reasonable history from patient due to psychosis. He does talk about visual hallucinations that he has been having. OBJECTIVE: VITAL SIGNS: Temperature 98.0. Blood pressure 183/112. Pulse 97. Respirations 18. GENERAL: He is anxious and wondering about his room and trying to leave his room constantly, disoriented. RESPIRATORY: Clear to auscultation. CARDIAC: Regular rate and rhythm. ABDOMEN: Soft, nontender. EXTREMITIES: No edema. LABORATORIES: White blood count 7.0, hemoglobin 8.8, hematocrit 26.4, platelets 262,000. Sodium 142, potassium 3.7, chloride 109, bicarbonate 21, BUN 20, creatinine 2.28, magnesium 1.6, total bilirubin 1.6, AST 48, ALT 51. ASSESSMENT AND PLAN: 1. ACUTE ENCEPHALOPATHY, LIKELY SECONDARY TO ALCOHOL WITHDRAWAL. The patient will be transferred to the intensive care unit and placed on an Ativan drip. He will be placed in soft limb restraints to prevent self-injury and also to prevent him from pulling out IV lines as he has done this on several occasions this admission. 2. ALCOHOL ABUSE/WITHDRAWAL. Ativan drip as mentioned above. IV thiamine. I am beginning to wonder if patient does not have a component of Werneckii's encephalopathy or alcohol-related dementia. 3. UNCONTROLLED HYPERTENSION. This is probably worsened by acute alcohol withdrawal. Continue Norvasc 5 mg daily. I will put patient on a Catapres patch. Continue IV labetalol p.r.n. 4. HYPOMAGNESEMIA. Replace as needed. 5. HYPONATREMIA. Corrected. 6. SOLITARY KIDNEY. The patient has an absent right kidney on ultrasound. Avoid nephrotoxic medications. 7. UNDERWEIGHT. 8. TOBACCO USE. 9. POSSIBLE PTSD. Psychology to evaluate once the patient is not acutely encephalopathic. 10. ACUTE ON CHRONIC KIDNEY DISEASE. I am not sure what patient's true baseline I. His kidney function has improved slightly from admission but seems to have plateaued out at around the 2.1 to 2.3 range. A renal ultrasound showed the patient has an absent right kidney and medical renal disease in the left kidney. DICTATING PHYSICIAN: CHEMO MOYER M.D. [id number] PHY#: [id number] ID: [id number] JOB#: [id number] ACCT: [id number] cc:CHEMO MOYER >
[2017-03-01] MEDS: LABETALOL HCL INJ 20 MG/4 ML DISP.SYRIN IV PRN ×2 (18:08→23:58)
[2017-03-01] MEDS ORDERED: OLANZAPINE 5 MG TABLET PO SCH (22:00)
[2017-03-02] MEDS: POTASSI CL 20 MEQ/D5-1/2NS 1L 1,000 ML IV PRN ×3 (02:33→22:53)
[2017-03-02 04:40] LABS: ABSOLUTE EOSINOPHILS # (AUTO) 0.3 10^3/uL (0.0-0.6); ABSOLUTE LYMPHOCYTES (AUTO) 1.4 10^3/uL (0.5-4.7); ABSOLUTE MONOCYTES (AUTO) 0.5 10^3/uL (0.1-1.4); ABSOLUTE NEUT (AUTO) 2.7 10^3/uL (1.7-8.2); BASOPHILS % (AUTO) 0.9 % (0-2); EOSINOPHILS % (AUTO) 6.9 % (0-6); HEMATOCRIT 24.3 % (37.9-51.0); HEMOGLOBIN 8.2 g/dL (13.5-17.0); HGB HCT DIFFERENCE 0.3; LYMPHOCYTES % (AUTO) 28.4 % (13-45); MEAN CORPUSCULAR HEMOGLOBIN 32.8 pg (27.0-33.4); MEAN CORPUSCULAR HGB CONC 33.7 g/dL (32.0-36.0); MEAN CORPUSCULAR VOLUME 97 fl (80-97); MONOCYTES % (AUTO) 9.3 % (3-13); RED CELL DISTRIBUTION WIDTH 13.9 % (11.5-14.0); SEGMENTED NEUTROPHILS % (AUTO) 54.5 % (42-78); WHITE BLOOD COUNT 4.9 10^3/uL (4.0-10.5)
[2017-03-02 04:47] LABS: ANION GAP 7 (5-19); BLOOD UREA NITROGEN 19 mg/dL (7-20); CALCIUM 8.7 mg/dL (8.4-10.2); CARBON DIOXIDE 23 mmol/L (22-30); CHLORIDE 110 mmol/L (98-107); GLUCOSE 105 mg/dL (75-110); MAGNESIUM 1.3 mg/dL (1.6-2.3); POTASSIUM 3.5 mmol/L (3.6-5.0); SODIUM 139.7 mmol/L (137-145)
[2017-03-02] MEDS ORDERED: LORAZEPAM INJ 2 MG/1 ML VIAL IV PRN (08:20)
[2017-03-02] MEDS ORDERED: MAGNESIUM SULFATE 4 GM/100 ML RTUPB IV ONE (09:00)
[2017-03-02] MEDS ORDERED: POTASSIUM CHLORIDE 10 MEQ TABLET.SA PO ONE (09:00)
[2017-03-02] MEDS: HEPARIN SOD (PORCINE) 5,000 UNIT/ML 1 ML SYRINGE SUBCUT SCH ×2 (09:16→22:18)
[2017-03-02] MEDS: THIAMINE HCL 100 MG in NORMAL SALINE 50 ML IV SCH (09:23)
[2017-03-02] MEDS: NICOTINE 21 MG/24 HR PATCH.TD24 TD SCH (10:28)
[2017-03-02] MEDS: LABETALOL HCL INJ 20 MG/4 ML DISP.SYRIN IV PRN (10:32)
[2017-03-02] MEDS: AMLODIPINE BESYLATE 5 MG TABLET PO SCH (10:35)
[2017-03-02] MEDS: POTASSI CL 20 MEQ/50 ML RIDER 20 MEQ/50 ML RTUPB IV SCH ×2 (12:28→13:22)
[2017-03-02] MEDS ORDERED: AMLODIPINE BESYLATE 5 MG TABLET PO ONE (15:00)
--- NOTE | 2017-03-02 15:13 | PDOC PROGRESS REPORT ---
Subjective Progress Note for:: 03/02/17 Subjective:: Patient seen on morning rounds. He is sleeping soundly in bed. She does arouse to verbal stimuli. He is oriented to person and place, but not to time. Nursing reports no agitation overnight. He was seen by psychiatry yesterday and found to have poor insight due to alcohol withdrawal. They recommended continuing to IVC him. He required IV Ativan drip earlier in the day due to increased agitation and hallucinations. He presently is cooperative. He is unable to do review of systems because of his sedation. Physical Exam Vital Signs: Temp Pulse Resp BP Pulse Ox 97.0 F 69 19 167/103 H 100 03/02/17 13:30 03/02/17 08:00 03/02/17 13:30 03/02/17 13:30 03/02/17 13:30 Intake & Output 03/01/17 03/02/17 03/03/17 06:59 06:59 06:59 Intake Total 794 1961 Output Total 275 1305 335 Balance 519 656 -335 Weight 55.4 kg 52.1 kg General appearance: PRESENT: no acute distress, thin, well-developed Head exam: PRESENT: atraumatic, normocephalic Eye exam: PRESENT: conjunctiva pink, EOMI, PERRLA. ABSENT: scleral icterus Ear exam: PRESENT: normal external ear exam Mouth exam: PRESENT: moist, tongue midline Teeth exam: PRESENT: edentulous Respiratory exam: PRESENT: clear to auscultation rubén. ABSENT: rales, rhonchi, wheezes Cardiovascular exam: PRESENT: RRR. ABSENT: diastolic murmur, rubs, systolic murmur Pulses: PRESENT: normal dorsalis pedis pul Vascular exam: PRESENT: normal capillary refill GI/Abdominal exam: PRESENT: normal bowel sounds, soft. ABSENT: distended, guarding, mass, organolmegaly, rebound, tenderness Rectal exam: PRESENT: deferred Extremities exam: PRESENT: full ROM. ABSENT: calf tenderness, clubbing, pedal edema Neurological exam: PRESENT: alert, awake, oriented to person, oriented to place , CN II-XII grossly intact. ABSENT: motor sensory deficit Psychiatric exam: PRESENT: flat affect Skin exam: PRESENT: dry, intact, warm. ABSENT: cyanosis, rash Results Laboratory Results: 03/02/17 04:25 03/02/17 04:25 03/02/17 03/02/17 04:25 04:25 WBC 4.9 RBC 2.50 L Hgb 8.2 L Hct 24.3 L MCV 97 MCH 32.8 MCHC 33.7 RDW 13.9 Plt Count 231 Seg Neutrophils % 54.5 Lymphocytes % 28.4 Monocytes % 9.3 Eosinophils % 6.9 H Basophils % 0.9 Absolute Neutrophils 2.7 Absolute Lymphocytes 1.4 Absolute Monocytes 0.5 Absolute Eosinophils 0.3 Absolute Basophils 0.0 Sodium 139.7 Potassium 3.5 L Chloride 110 H Carbon Dioxide 23 Anion Gap 7 BUN 19 Creatinine 2.10 H Est GFR ( Amer) 42 L Est GFR (Non-Af Amer) 34 L Glucose 105 Calcium 8.7 Magnesium 1.3 L 02/26/17 02/26/17 05:37 11:54 Troponin I 0.047 0.028 Impressions: Head CT 02/25/17 23:42 IMPRESSION: No acute findings. Chest X-Ray 02/25/17 23:43 IMPRESSION: Right 7th and 8th posterior rib deformities/fracture of indeterminate age; not seen well on prior radiographs from November 2011 and July 2011. Renal Ultrasound 02/26/17 00:00 IMPRESSION: No right kidney identified. Chronic medical renal disease pattern of the left kidney. Limited or Localized CT 02/26/17 00:02 IMPRESSION: 1. Moderate reticular nodularity of the left lower lobe may indicate atypical pneumonia or chronic interstitial lung disease. 2. Healing left lower rib fractures. 3. Cholelithiasis. 4. Absent right kidney. Assessment & Plan - Diagnosis (1) Acute encephalopathy Is this a current diagnosis for this admission?: Yes (2) Alcohol withdrawal seizure Qualifiers: Complication of substance-induced condition: with perceptual disturbance Qualified Code(s): F10.232 - Alcohol dependence with withdrawal with perceptual disturbance Is this a current diagnosis for this admission?: YesPlan: Likely secondary to alcoholism, questionable Wernicke's encephalopathy. He is off the IV infusion presently. He is ordered Ativan as needed IV. (3) Alcohol abuse Is this a current diagnosis for this admission?: YesPlan: Continue thiamine supplement, as needed anxiolytics (4) Protein-calorie malnutrition, severe Is this a current diagnosis for this admission?: YesPlan: Patient has a BMI of 17. Most likely associated with poor nutrition secondary to his alcoholism. He is eating here and given protein supplements with each meal. (5) Metabolic acidosis Is this a current diagnosis for this admission?: YesPlan: Secondary to acute on chronic kidney injury.. This is improving (6) ARF (acute renal failure) Qualifiers: Acute renal failure type: unspecified Qualified Code(s): N17.9 - Acute kidney failure, unspecified Is this a current diagnosis for this admission?: YesPlan: Patient was found to have an absent right kidney, mild hypertensive renal disease on the left. Will avoid nephrotoxic agents and dosages (7) Hypomagnesemia Is this a current diagnosis for this admission?: YesPlan: Repleted (8) Hyponatremia Is this a current diagnosis for this admission?: YesPlan: Secondary to alcoholism is improving. - Time Time Spent with patient: 25-34 minutes Critical Time spent with patient: 15-24 minutes Medications reviewed and adjusted accordingly: Yes
--- NOTE | 2017-03-02 16:57 | PSYCHOLOGICAL NOTE ---
Psych Note - Psych Note Psych Note: RUCHI DE OLIVEIRA is a 47 year old -[place] male with history of alcohol abuse, alcohol withdrawal seizures, and delirium tremens who presents to the emergency room for evaluation of above complaint. Clinician conducted checking with patient Patient disclosed that he went to work is normal and it was really hot. He continued disclosed that he was moving things around working hard. He stated that while his boss checked on a another job site he continued to work. Patient disclosed that after work about 6:30 in the evening they had at home however ended up coming to [facility]. He continued disclosed that "Bernard said I had a seizure." Patient disclosed that when he works really hard he has to sit down frequently. This is the first time the patient has been able to fully discuss the events leading up to [facility]. However patient started to deteriorate in his cognitive abilities disclosing that the current month was March. Patient was identified that is currently 2016. When asked if he knows what building he is in a disclose "they tell me at the hospital that does not look like hospital." When asked what it looks like patient stated "it has been remodeled." When asked what makes an apple and a banana similar the patient had difficulty stating it is hard to eat apples but if it cut in half he can eat it. Patient only responded he was not sure. When asked the similarity between a bicycle and train the patient disclosed "the train is quicker." When the patient was asked who the president is he disclosed Gigi. When it was explained that the president was trump patient became visibly upset and shock. When asked if he the president was after Ggii he stated "I should know this, he was a black one." Was asked his date and he responded 1970. Patient was unable to successfully write his name without checking when his last name was on his ID band bracelet is also noted the patient attempted to draw a clock and was unsuccessful. Patient is alert. Orientation is circumstance. Mood is euthymic with congruent affect. Denies suicidal and homicidal ideation. Patient denies auditory visual hallucinations. Patient is not demonstrating any behavior to indicate responding to internal stimuli. I.e. making good eye contact and linear conversation. No delusions are noted at this time. Eye contact was well- maintained. Intellectual abilities appear to be within average range. These appear to be impaired at this time. 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 Patient is demonstrating waxing and waning of orienation. there is a reported history of delirium secondary to alcohol withdrawal. Appears to be oriented to circumstance today however his cognitive functioning has demonstrated deterioration. Patient was unable to remember his last name. Patient was unable to make associations questions correctly. Re-evaluation will be conducted. Dr. Sierra was consulted on the care and management of this patient ; attending physician is in agreement with recommendations and disposition.
[2017-03-03 05:01] LABS: ABSOLUTE BASOPHILS # (AUTO) 0.1 10^3/uL (0.0-0.2); ABSOLUTE EOSINOPHILS # (AUTO) 0.4 10^3/uL (0.0-0.6); ABSOLUTE LYMPHOCYTES (AUTO) 1.4 10^3/uL (0.5-4.7); ABSOLUTE MONOCYTES (AUTO) 0.6 10^3/uL (0.1-1.4); ABSOLUTE NEUT (AUTO) 3.7 10^3/uL (1.7-8.2); BASOPHILS % (AUTO) 1.3 % (0-2); EOSINOPHILS % (AUTO) 6.2 % (0-6); HEMATOCRIT 23.4 % (37.9-51.0); HEMOGLOBIN 8.1 g/dL (13.5-17.0); HGB HCT DIFFERENCE 0.9; LYMPHOCYTES % (AUTO) 22.5 % (13-45); MEAN CORPUSCULAR HEMOGLOBIN 33.5 pg (27.0-33.4); MEAN CORPUSCULAR HGB CONC 34.5 g/dL (32.0-36.0); MEAN CORPUSCULAR VOLUME 97 fl (80-97); MONOCYTES % (AUTO) 9.9 % (3-13); RED BLOOD COUNT 2.41 10^6/uL (4.35-5.55); RED CELL DISTRIBUTION WIDTH 13.9 % (11.5-14.0); SEGMENTED NEUTROPHILS % (AUTO) 60.1 % (42-78); WHITE BLOOD COUNT 6.1 10^3/uL (4.0-10.5)
[2017-03-03 05:23] LABS: ALANINE AMINOTRANSFERASE 45 U/L (21-72); ALBUMIN 2.7 g/dL (3.5-5.0); ALKALINE PHOSPHATASE 116 U/L (38-126); ANION GAP 6 (5-19); ASPARTATE AMINO TRANSFERASE 25 U/L (17-59); BILIRUBIN,DIRECT 0.4 mg/dL (0.0-0.4); BILIRUBIN,TOTAL 0.6 mg/dL (0.2-1.3); BLOOD UREA NITROGEN 21 mg/dL (7-20); CALCIUM 8.3 mg/dL (8.4-10.2); CARBON DIOXIDE 17 mmol/L (22-30); CHLORIDE 111 mmol/L (98-107); CREATININE RESULT 2.33 mg/dL (0.52-1.25); GLUCOSE 118 mg/dL (75-110); POTASSIUM 4.6 mmol/L (3.6-5.0); SODIUM 134.3 mmol/L (137-145); TOTAL PROTEIN 5.6 g/dL (6.3-8.2)
[2017-03-03] MEDS ORDERED: NORMAL SALINE 1000 ML 1,000 ML IV PRN (07:39)
--- NOTE | 2017-03-03 08:12 | PDOC PROGRESS REPORT ---
Subjective Progress Note for:: 03/03/17 Subjective:: Patient seen on morning rounds. He is eating breakfast. He has been off the ativan drip since yesterday am and has been cooperative. He has periods of confusion. He is oriented to person and place, but not to time. He was seen by psychiatry yesterday and found to have poor insight due to alcohol withdrawal. They recommended continuing to IVC him. He is unable to do review of systems because of his sedation. Physical Exam Vital Signs: Temp Pulse Resp BP Pulse Ox 98.4 F 80 19 144/83 H 98 03/03/17 06:01 03/02/17 20:00 03/03/17 06:01 03/03/17 06:00 03/03/17 06:01 Intake & Output 03/02/17 03/03/17 03/04/17 06:59 06:59 06:59 Intake Total 1961 3251 Output Total 1305 1190 Balance 656 2061 Weight 52.1 kg 53.2 kg General appearance: PRESENT: no acute distress, thin, well-developed Head exam: PRESENT: atraumatic, normocephalic Eye exam: PRESENT: conjunctiva pink, EOMI, PERRLA. ABSENT: scleral icterus Ear exam: PRESENT: normal external ear exam Mouth exam: PRESENT: moist, tongue midline Neck exam: ABSENT: carotid bruit, JVD, lymphadenopathy, thyromegaly Respiratory exam: PRESENT: clear to auscultation rubén. ABSENT: rales, rhonchi, wheezes Cardiovascular exam: PRESENT: RRR. ABSENT: diastolic murmur, rubs, systolic murmur Pulses: PRESENT: normal dorsalis pedis pul Vascular exam: PRESENT: normal capillary refill GI/Abdominal exam: PRESENT: normal bowel sounds, soft. ABSENT: distended, guarding, mass, organolmegaly, rebound, tenderness Rectal exam: PRESENT: deferred Extremities exam: PRESENT: full ROM. ABSENT: calf tenderness, clubbing, pedal edema Musculoskeletal exam: PRESENT: full ROM, normal inspection Neurological exam: PRESENT: alert, altered, oriented to person, oriented to situation, CN II-XII grossly intact Psychiatric exam: PRESENT: flat affect Skin exam: PRESENT: dry, intact, warm. ABSENT: cyanosis, rash Results Laboratory Results: 03/03/17 04:46 03/03/17 04:46 03/03/17 03/03/17 04:46 04:46 WBC 6.1 RBC 2.41 L Hgb 8.1 L Hct 23.4 L MCV 97 MCH 33.5 H MCHC 34.5 RDW 13.9 Plt Count 235 Seg Neutrophils % 60.1 Lymphocytes % 22.5 Monocytes % 9.9 Eosinophils % 6.2 H Basophils % 1.3 Absolute Neutrophils 3.7 Absolute Lymphocytes 1.4 Absolute Monocytes 0.6 Absolute Eosinophils 0.4 Absolute Basophils 0.1 Sodium 134.3 L Potassium 4.6 Chloride 111 H Carbon Dioxide 17 L Anion Gap 6 BUN 21 H Creatinine 2.33 H Est GFR ( Amer) 37 L Est GFR (Non-Af Amer) 30 L Glucose 118 H Calcium 8.3 L Total Bilirubin 0.6 AST 25 ALT 45 Alkaline Phosphatase 116 Total Protein 5.6 L Albumin 2.7 L 02/26/17 02/26/17 05:37 11:54 Troponin I 0.047 0.028 Impressions: Head CT 02/25/17 23:42 IMPRESSION: No acute findings. Chest X-Ray 02/25/17 23:43 IMPRESSION: Right 7th and 8th posterior rib deformities/fracture of indeterminate age; not seen well on prior radiographs from November 2011 and July 2011. Renal Ultrasound 02/26/17 00:00 IMPRESSION: No right kidney identified. Chronic medical renal disease pattern of the left kidney. Limited or Localized CT 02/26/17 00:02 IMPRESSION: 1. Moderate reticular nodularity of the left lower lobe may indicate atypical pneumonia or chronic interstitial lung disease. 2. Healing left lower rib fractures. 3. Cholelithiasis. 4. Absent right kidney. Assessment & Plan - Diagnosis (1) Acute encephalopathy Is this a current diagnosis for this admission?: YesPlan: Improving. He is cooperative, confused to time and at times situation (2) Alcohol withdrawal seizure Qualifiers: Complication of substance-induced condition: with perceptual disturbance Qualified Code(s): F10.232 - Alcohol dependence with withdrawal with perceptual disturbance Is this a current diagnosis for this admission?: YesPlan: Likely secondary to alcoholism, questionable Wernicke's encephalopathy. He is off the IV infusion presently. He is ordered Ativan as needed IV. (3) Alcohol abuse Is this a current diagnosis for this admission?: YesPlan: Continue thiamine supplement, as needed anxiolytics (4) Protein-calorie malnutrition, severe Is this a current diagnosis for this admission?: YesPlan: Patient has a BMI of 17. Most likely associated with poor nutrition secondary to his alcoholism. He is eating here and given protein supplements with each meal. (5) Metabolic acidosis Is this a current diagnosis for this admission?: YesPlan: Secondary to acute on chronic kidney injury.. This is improving (6) ARF (acute renal failure) Qualifiers: Acute renal failure type: unspecified Qualified Code(s): N17.9 - Acute kidney failure, unspecified Is this a current diagnosis for this admission?: YesPlan: Patient was found to have an absent right kidney, mild hypertensive renal disease on the left. Will avoid nephrotoxic agents and dosages (7) Hypomagnesemia Is this a current diagnosis for this admission?: YesPlan: Repleted (8) Hyponatremia Is this a current diagnosis for this admission?: YesPlan: Secondary to alcoholism is improving. - Time Time Spent with patient: 25-34 minutes Critical Time spent with patient: 15-24 minutes Medications reviewed and adjusted accordingly: Yes
[2017-03-03] MEDS: AMLODIPINE BESYLATE 5 MG TABLET PO SCH (09:42)
[2017-03-03] MEDS: HEPARIN SOD (PORCINE) 5,000 UNIT/ML 1 ML SYRINGE SUBCUT SCH ×2 (09:43→21:15)
[2017-03-03] MEDS: NICOTINE 21 MG/24 HR PATCH.TD24 TD SCH (09:43)
[2017-03-03] MEDS: THIAMINE HCL 100 MG in NORMAL SALINE 50 ML IV SCH (09:43)
[2017-03-04 04:36] LABS: ABSOLUTE EOSINOPHILS # (AUTO) 0.3 10^3/uL (0.0-0.6); ABSOLUTE LYMPHOCYTES (AUTO) 1.4 10^3/uL (0.5-4.7); ABSOLUTE MONOCYTES (AUTO) 0.7 10^3/uL (0.1-1.4); ABSOLUTE NEUT (AUTO) 2.2 10^3/uL (1.7-8.2); BASOPHILS % (AUTO) 0.9 % (0-2); EOSINOPHILS % (AUTO) 5.9 % (0-6); HEMATOCRIT 23.8 % (37.9-51.0); HGB HCT DIFFERENCE -0.1; LYMPHOCYTES % (AUTO) 30.1 % (13-45); MEAN CORPUSCULAR HEMOGLOBIN 32.5 pg (27.0-33.4); MEAN CORPUSCULAR HGB CONC 33.4 g/dL (32.0-36.0); MEAN CORPUSCULAR VOLUME 98 fl (80-97); MONOCYTES % (AUTO) 15.1 % (3-13); RED BLOOD COUNT 2.44 10^6/uL (4.35-5.55); RED CELL DISTRIBUTION WIDTH 13.6 % (11.5-14.0); WHITE BLOOD COUNT 4.6 10^3/uL (4.0-10.5)
[2017-03-04 04:46] LABS: HEMOGLOBIN 7.9 g/dL (13.5-17.0)
[2017-03-04 05:09] LABS: BLOOD UREA NITROGEN 24 mg/dL (7-20); CALCIUM 8.8 mg/dL (8.4-10.2); CREATININE RESULT 2.55 mg/dL (0.52-1.25); GLUCOSE 92 mg/dL (75-110)
[2017-03-04 05:21] LABS: ANION GAP 7 (5-19); CARBON DIOXIDE 19 mmol/L (22-30); CHLORIDE 110 mmol/L (98-107); POTASSIUM 4.7 mmol/L (3.6-5.0); SODIUM 136.4 mmol/L (137-145)
[2017-03-04] MEDS: HEPARIN SOD (PORCINE) 5,000 UNIT/ML 1 ML SYRINGE SUBCUT SCH ×2 (10:26→21:18)
[2017-03-04] MEDS: NICOTINE 21 MG/24 HR PATCH.TD24 TD SCH (10:26)
[2017-03-04] MEDS: AMLODIPINE BESYLATE 5 MG TABLET PO SCH (10:26)
[2017-03-04] MEDS: THIAMINE HCL 100 MG in NORMAL SALINE 50 ML IV SCH (10:26)
[2017-03-04] MEDS: LABETALOL HCL INJ 20 MG/4 ML DISP.SYRIN IV PRN (23:20)
[2017-03-05] MEDS: AMLODIPINE BESYLATE 5 MG TABLET PO SCH (09:17)
[2017-03-05] MEDS: THIAMINE HCL 100 MG in NORMAL SALINE 50 ML IV SCH (09:17)
[2017-03-05] MEDS: HEPARIN SOD (PORCINE) 5,000 UNIT/ML 1 ML SYRINGE SUBCUT SCH (09:18)
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
[2017-03-05] MEDS ORDERED: AMLODIPINE BESYLATE 5 MG TABLET PO SCH (10:00)
[2017-03-05] MEDS: NICOTINE 21 MG/24 HR PATCH.TD24 TD SCH (10:30)
[2017-03-05 11:51] VITALS: BP 177/102
--- NOTE | 2017-03-05 15:27 | PDOC DISCHARGE SUMMARY ---
General - Admit/Disc Date/PCP Admission Date/Primary Care Provider: 02/26/17 04:23 Discharge Date: 03/05/17 - Discharge Diagnosis (1) Acute encephalopathy Is this a current diagnosis for this admission?: YesSummary: Resolved (2) Alcohol withdrawal seizure Is this a current diagnosis for this admission?: YesSummary: Resolved (3) Alcohol abuse Is this a current diagnosis for this admission?: YesSummary: Patient does not wish to quit drinking (4) Protein-calorie malnutrition, severe Is this a current diagnosis for this admission?: YesSummary: Patient was encouraged to increase caloric intake. He ate 100% of meals here (5) Metabolic acidosis Is this a current diagnosis for this admission?: YesSummary: Resolved (6) ARF (acute renal failure) Is this a current diagnosis for this admission?: YesSummary: Improved to baseline CKD 4. He will follow up with nephrology (7) Hypomagnesemia Is this a current diagnosis for this admission?: YesSummary: Repleted (8) Hyponatremia Is this a current diagnosis for this admission?: YesSummary: Repleted and resolved - Additional Information Resuscitation Status: Full Code Discharge Diet: Regular Discharge Activity: Activity As Tolerated Home Medications: Acetaminophen [Tylenol 650 mg Supp] 650 mg [place] Q8HP PRN supp.rect 03/05/17 Amlodipine Besylate [Norvasc 5 mg Tablet] 5 mg PO DAILY #30 tablet 03/05/17 History of Present Illness History of Present Illness: RUCHI DE OLIVEIRA is a 47 year old male Physical Exam Vital Signs: Temp Pulse Resp BP Pulse Ox 97.4 F 76 15 188/117 H 98 03/05/17 11:41 03/05/17 11:41 03/05/17 11:41 03/05/17 11:41 03/05/17 11:41 Intake & Output 03/04/17 03/05/17 03/06/17 06:59 06:59 06:59 Intake Total 875 2570 459 Output Total 1450 400 Balance -575 2170 459 Weight 54.9 kg 56.2 kg General appearance: PRESENT: no acute distress, thin, well-developed Head exam: PRESENT: atraumatic, normocephalic Eye exam: PRESENT: conjunctiva pink, EOMI, PERRLA. ABSENT: scleral icterus Ear exam: PRESENT: normal external ear exam Mouth exam: PRESENT: neck supple, tongue midline Teeth exam: PRESENT: poor dentation Neck exam: ABSENT: carotid bruit, JVD, lymphadenopathy, thyromegaly Respiratory exam: PRESENT: clear to auscultation rubén. ABSENT: rales, rhonchi, wheezes Cardiovascular exam: PRESENT: RRR. ABSENT: diastolic murmur, rubs, systolic murmur Pulses: PRESENT: normal dorsalis pedis pul Vascular exam: PRESENT: normal capillary refill GI/Abdominal exam: PRESENT: normal bowel sounds, soft. ABSENT: distended, guarding, mass, organolmegaly, rebound, tenderness Rectal exam: PRESENT: deferred Extremities exam: PRESENT: full ROM. ABSENT: calf tenderness, clubbing, pedal edema Neurological exam: PRESENT: alert, awake, oriented to person, oriented to place , oriented to time, oriented to situation, CN II-XII grossly intact. ABSENT: motor sensory deficit Psychiatric exam: PRESENT: appropriate affect, normal mood. ABSENT: homicidal ideation, suicidal ideation Skin exam: PRESENT: dry, intact, warm. ABSENT: cyanosis, rash Results Laboratory Results: 03/04/17 04:18 03/04/17 04:18 02/26/17 02/26/17 05:37 11:54 Troponin I 0.047 0.028 Impressions: Head CT 02/25/17 23:42 IMPRESSION: No acute findings. Chest X-Ray 02/25/17 23:43 IMPRESSION: Right 7th and 8th posterior rib deformities/fracture of indeterminate age; not seen well on prior radiographs from November 2011 and July 2011. Renal Ultrasound 02/26/17 00:00 IMPRESSION: No right kidney identified. Chronic medical renal disease pattern of the left kidney. Limited or Localized CT 02/26/17 00:02 IMPRESSION: 1. Moderate reticular nodularity of the left lower lobe may indicate atypical pneumonia or chronic interstitial lung disease. 2. Healing left lower rib fractures. 3. Cholelithiasis. 4. Absent right kidney. Qualifiers PATEINT BEING DISCHARGED WITH ANY OF THE FOLLOWING DIAGNOSIS?: No Plan Discharge Plan: Home with mother
[2017-03-08] MEDS ORDERED: CLONIDINE 0.1 MG/24 HR PATCH.TDWK TD SCH (10:00)
== END 2017-03-05 13:23 | disposition home or self-care (01) | DRG 896 ==
LOC: ER 21:04 → EH 02-26 02:28 → UNDOADMIN 02-26 02:28 → EH 02-26 04:23 → 3N 02-26 05:15 → EH 02-26 05:15 → ICU 03-01 15:50 → 3W 03-03 14:26
PROVIDERS: ADMIT Family Medicine; ATTEND Family Medicine
PROC: 3E0F73Z Introduction of Anti-inflammatory into Respiratory Tract, Via Natural or Artificial Opening (ICD-10-PCS; principal; 2017-02-26)
DX: F10.231 Alcohol dependence with withdrawal delirium (principal); E43 Unspecified severe protein-calorie malnutrition; Z68.1 Body mass index [BMI] 19.9 or less, adult; E87.2 Acidosis; N17.9 Acute kidney failure, unspecified; N18.4 Chronic kidney disease, stage 4 (severe); E87.1 Hypo-osmolality and hyponatremia; G40.909 Epilepsy, unspecified, not intractable, without status epilepticus; Z78.1 Physical restraint status; E83.42 Hypomagnesemia; I12.9 Hypertensive chronic kidney disease with stage 1 through stage 4 chronic kidney disease, or unspecified chronic kidney disease; S22.41XG Multiple fractures of ribs, right side, subsequent encounter for fracture with delayed healing; X58.XXXD Exposure to other specified factors, subsequent encounter; K80.20 Calculus of gallbladder without cholecystitis without obstruction; Y90.0 Blood alcohol level of less than 20 mg/100 ml; J45.909 Unspecified asthma, uncomplicated; I16.0 Hypertensive urgency; F10.232 Alcohol dependence with withdrawal with perceptual disturbance; Z90.5 Acquired absence of kidney
CPT/HCPCS: 36415; 70450; 71010; 76380; 76770; 80048; 80053; 80185; 80307; 81001; 82140; 82607; 82728; 82746; 83540; 83550; 83735; 83930; 83935; 84100; 84443; 84466; 84484; 85025; 85027; 85045; 85610; 86701; 93005; 93010; 96365; 96366; 96375; 99291; 99292; J0360; J1630; J1644; J2060; J3411; J3475; J3480; J3490; J7030; S0028

== ENCOUNTER 2018-07-04 21:54 | Emergency (ER) | payer SELFPAY ==
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
[2018-07-05] MEDS: MORPHINE SULFATE 10 MG/ML INJ IV PRN ×3 (00:49→06:59)
[2018-07-05 00:54] LABS: ABSOLUTE LYMPHOCYTES (AUTO) 1.1 10^3/uL (0.5-4.7); ABSOLUTE NEUT (AUTO) 6.5 10^3/uL (1.7-8.2); BASOPHILS % (AUTO) 0.3 % (0-2); EOSINOPHILS % (AUTO) 0.1 % (0-6); HEMATOCRIT 21.6 % (37.9-51.0); LYMPHOCYTES % (AUTO) 12.4 % (13-45); MEAN CORPUSCULAR HEMOGLOBIN 34.6 pg (27.0-33.4); MEAN CORPUSCULAR HGB CONC 35.1 g/dL (32.0-36.0); MEAN CORPUSCULAR VOLUME 98 fl (80-97); MONOCYTES % (AUTO) 11.3 % (3-13); PLATELET COUNT 258 10^3/uL (150-450); RED CELL DISTRIBUTION WIDTH 13.5 % (11.5-14.0); SEGMENTED NEUTROPHILS % (AUTO) 75.9 % (42-78); TOTAL CELLS COUNTED % (AUTO) 100 %; WHITE BLOOD COUNT 8.6 10^3/uL (4.0-10.5)
[2018-07-05 00:57] LABS: HEMOGLOBIN 7.6 g/dL (13.5-17.0)
[2018-07-05 00:59] LABS: INTERNATIONAL RATION (INR) 0.99; PROTHROMBIN TIME 13.6 SEC (11.4-15.4)
[2018-07-05 01:00] LABS: PARTIAL THROMBOPLASTIN TIME 33.5 SEC (23.5-35.8)
[2018-07-05 01:17] LABS: ANION GAP 15 (5-19); BLOOD UREA NITROGEN 56 mg/dL (7-20); CALCIUM 8.9 mg/dL (8.4-10.2); CARBON DIOXIDE 15 mmol/L (22-30); CHLORIDE 99 mmol/L (98-107); GLUCOSE 85 mg/dL (75-110); POTASSIUM 5.1 mmol/L (3.6-5.0); SODIUM 129.2 mmol/L (137-145)
[2018-07-05] MEDS ORDERED: NORMAL SALINE 1000 ML 1,000 ML IV ONE ×2 (01:27→03:17)
[2018-07-05 01:48] LABS: ALCOHOL < 10 mg/dL (NONE DETECTED)
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
--- NOTE | 2018-07-05 02:20 | RADIOLOGY REPORT (SQ) ---
EXAM DESCRIPTION: XR HUMERUS COMPLETED DATE/TME: 07/04/2018 23:24 CLINICAL HISTORY: 48 years, Male, fall, trauma COMPARISON: None. FINDINGS: 2 views of the right humerus. No acute fracture identified. Plate and screw fixation hardware of the right humerus. Healed fracture. Likely remote right rib fractures. No right-sided pneumothorax. IMPRESSION: 1. No definite acute right humeral fracture. Chronic appearing healed fracture of the right humerus with fixation hardware. 2011 [employer]- All Rights Reserved
[2018-07-05] MEDS ORDERED: THIAMINE HCL INJ 200 MG/2 ML VIAL ONE (02:22)
[2018-07-05] MEDS: THIAMINE HCL 500 MG in NORMAL SALINE 250 ML IV SCH ×2 (02:33→10:14)
[2018-07-05 03:05] LABS: CREATINE KINASE 450 U/L (55-170)
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
--- NOTE | 2018-07-05 03:38 | RADIOLOGY REPORT (SQ) ---
CLINICAL DATA: 48-year-old male with right elbow pain TECHNICAL DATA: Four x-ray views of the right elbow were performed on 07/05/2018 at 3:03 AM. COMPARISONS: None FINDINGS: There are remote postsurgical changes of the right humerus. The visualized indwelling hardware is grossly intact without definite failure. The proximal portion of the hardware is not visualized on this study. There is an acute displaced fracture through the olecranon process. The fracture fragments are distracted by approximately 3.4 cm. There is marked surrounding soft tissue swelling. There is elevation of the anterior humeral fat pad consistent with a joint effusion. The elbow joint is intact. No additional acute fractures are identified. There is periarticular osteopenia. IMPRESSION: 1. Acute displaced, distracted fracture through the olecranon process of the proximal ulna. There is surrounding soft tissue swelling. 2. Remote postsurgical changes of the right humerus consistent with ORIF. 3. Periarticular osteopenia.
--- NOTE | 2018-07-05 04:11 | RADIOLOGY REPORT (SQ) ---
EXAM DESCRIPTION: CT UPPER EXTREMITY WITHOUT IV CONTRAST COMPLETED DATE/TME: 07/05/2018 03:18 CLINICAL HISTORY: 48 years, Male, eval right olecranon fx, possible elbow dislocatio COMPARISON: None. TECHNIQUE: Axial CT images of the right upper and 70 at the level of the elbow obtained without contrast. All CT scanners at this facility use dose modulation, iterative reconstruction, and/or weight based dosing when appropriate to reduce radiation dose to as low as reasonably achievable (ALARA). [facility]: Dose Right [facility]: CareDose [facility]: Dose Right [facility]: Teradose 4D [facility]: [employer] LIMITATIONS: None. FINDINGS: CT of the elbow without contrast: Partial visualization of humeral fixation hardware. Osteopenia. There is an avulsion fracture of the olecranon process of the ulna with approximately 3.5 cm displacement of the avulsed fragment. There is a nondisplaced fracture through the coronoid process of the ulna. Possible nondisplaced radial head fracture. IMPRESSION: 1. Avulsion fracture of the olecranon process of the ulna with approximately 3.5 cm retraction of the avulsed fragment. This is assumed to be acute as no comparison imaging is available. 2. Nondisplaced fracture through the coronoid process of the ulna. 3. Possible nondisplaced radial head fracture. TECHNICAL DOCUMENTATION: Quality ID # [id number]: Final reports with documentation of one or more dose reduction techniques (e.g., Automated exposure control, adjustment of the mA and/or kV according to patient size, use of iterative reconstruction technique) 2010 [email or web address]- All Rights Reserved
[2018-07-05 12:04] VITALS: BP 167/95
== END 2018-07-05 10:54 | disposition short-term general hospital (02) ==
LOC: ER 21:54
DX: N17.9 Acute kidney failure, unspecified (principal); S52.021A Displaced fracture of olecranon process without intraarticular extension of right ulna, initial encounter for closed fracture; V19.88XA Pedal cyclist (driver) (passenger) injured in other specified transport accidents, initial encounter; F10.10 Alcohol abuse, uncomplicated; E87.1 Hypo-osmolality and hyponatremia; R63.6 Underweight; F17.200 Nicotine dependence, unspecified, uncomplicated; Q60.0 Renal agenesis, unilateral
CPT/HCPCS: 96376; 99285; 96361; 96375; 96365; 36415; 80307; 82550; 85025; 85610; 85730; 80048; 73080; 73090; 73130; 73060; 73200; 29105; J2270; J3411; J7050

== ENCOUNTER 2019-02-02 14:14 | Emergency (ER) | payer SELFPAY ==
[2019-02-02 14:26] VITALS: BP 130/87
--- NOTE | 2019-02-02 15:12 | ER Document Report ---
ED Skin Rash/Insect Bite/Abscs - General Chief Complaint: Abscess Stated Complaint: SKIN ISSUES Time Seen by Provider: 02/02/19 15:05 Mode of Arrival: Ambulatory Information source: Patient Notes: 39-year-old male was presented to ED for lesions to his arms and legs ear and back. He states he does not know for sure how long they have been there. He thought they were abscesses. Patient is alert oriented respirations regular and unlabored speaking in full sentences walks with a even steady gait. TRAVEL OUTSIDE OF THE [place] IN LAST 30 DAYS: No - HPI Patient complains to provider of: Skin rash/lesion - Left leg, right arm, right ear, and some on his back Onset: Other - Unsure of when started Onset/Duration: Gradual Quality of pain: No pain Severity: Mild Pain Level: 0 Skin Character: Lesion, Scales, Thickening Quality of rash: Itchy Identify cause: No Exacerbated by: Denies Relieved by: Denies Similar symptoms previously: No Recently seen / treated by doctor: No - Related Data Allergies/Adverse Reactions: No Known Allergies Allergy (Verified 02/02/19 14:15) Past Medical History - General Information source: Patient - Social History Smoking Status: Current Every Day Smoker Cigarette use (# per day): Yes Smoking Education Provided: Yes - 4 min Frequency of alcohol use: None Drug Abuse: None Lives with: Family Family History: Reviewed & Not Pertinent Patient has suicidal ideation: No Patient has homicidal ideation: No - Past Medical History Cardiac Medical History: Reports: None Pulmonary Medical History: Reports: Hx Asthma, Hx Bronchitis EENT Medical History: Reports: None Neurological Medical History: Reports: Hx Seizures - Alcohol withdrawal. Endocrine Medical History: Reports: None Renal/ Medical History: Reports: None Malignancy Medical History: Reports None GI Medical History: Reports: None Musculoskeletal Medical History: Reports Hx Musculoskeletal Trauma Skin Medical History: Reports None Psychiatric Medical History: Reports: None Traumatic Medical History: Reports: None Infectious Medical History: Reports: None Past Surgical History: Reports: Hx Orthopedic Surgery - right shoulder surgery - Immunizations Immunizations up to date: Yes Hx Diphtheria, Pertussis, Tetanus Vaccination: Yes Review of Systems - Review of Systems Constitutional: No symptoms reported EENT: No symptoms reported Cardiovascular: No symptoms reported Respiratory: No symptoms reported Gastrointestinal: No symptoms reported Genitourinary: No symptoms reported Male Genitourinary: No symptoms reported Musculoskeletal: No symptoms reported Skin: Lesions - Left leg right arm right ear and back Hematologic/Lymphatic: No symptoms reported Neurological/Psychological: No symptoms reported -: Yes All other systems reviewed and negative Physical Exam - Vital signs Vitals: Temp Pulse Resp BP Pulse Ox 98.2 F 86 16 130/87 H 100 02/02/19 14:21 02/02/19 14:21 02/02/19 14:21 02/02/19 14:21 02/02/19 14:21 Interpretation: Normal - General General appearance: Appears well, Alert - HEENT Head: Normocephalic, Atraumatic Eyes: Normal Pupils: PERRL - Respiratory Respiratory status: No respiratory distress Chest status: Nontender Breath sounds: Normal Chest palpation: Normal - Cardiovascular Rhythm: Regular Heart sounds: Normal auscultation Murmur: No - Abdominal Inspection: Normal Distension: No distension Bowel sounds: Normal Tenderness: Nontender Organomegaly: No organomegaly - Back Back: Normal, Nontender - Extremities General upper extremity: Normal inspection, Nontender, Normal color, Normal ROM, Normal temperature General lower extremity: Normal inspection, Nontender, Normal color, Normal ROM, Normal temperature, Normal weight bearing. No: Mark's sign - Neurological Neuro grossly intact: Yes Cognition: Normal Orientation: AAOx4 [place] Coma Scale Eye Opening: Spontaneous Phan Coma Scale Verbal: Oriented [place] Coma Scale Motor: Obeys Commands [place] Coma Scale Total: 15 Speech: Normal Motor strength normal: LUE, RUE, LLE, RLE Sensory: Normal - Psychological Associated symptoms: Normal affect, Normal mood - Skin Skin Temperature: Warm Skin Moisture: Dry Skin Color: Normal Skin irregularity: Lesion Location of irregularity: Ears - Right ear, Back, Extremities - Left leg right arm Character of irregularity: Other - Itchy Irregularity with: Thickening, Scaling, Crusting, Rough texture-sand paper. negative: Weeping Course - Vital Signs Vital signs: Temp Pulse Resp BP Pulse Ox 98.2 F 86 16 130/87 H 100 02/02/19 14:21 02/02/19 14:21 02/02/19 14:21 02/02/19 14:21 02/02/19 14:21 Discharge - Discharge Clinical Impression: Lesions to multiple areas Condition: Stable Disposition: HOME, SELF-CARE Instructions: Family Physicians / Practices Additional Instructions: He has skin lesions to the left leg, right arm, right ear, abdomen, and back. These lesions need to be followed up with dermatology who is a doctor that takes care of skin problems. Cephalexin The antibiotic you've been prescribed is a member of the cephalosporin class. This type of antibiotic covers a wide variety of infections, including those of the skin, lungs, and urinary tract. It's useful for staph infections. This antibiotic is slightly similar to the penicillin family. In rare cases, a person who is allergic to penicillin will also be allergic to this medication. If you have had a severe allergic reaction to penicillin, and have not taken this antibiotic since that time, notify your doctor. Antibiotics which cover many germs ("broad spectrum" antibiotics) are more likely to cause diarrhea or "yeast" infections. Women prone to vaginal yeast problems may suffer an attack after taking this antibiotic. In infants, oral thrush (white spots "stuck" on the cheek) or yeast diaper rash may result. See your doctor if these problems occur. Call at once if you develop itching, hives, shortness of breath, or lightheadedness. Sulfa Medications The antibiotic you have received is a member of the sulfa family. These antibiotics are commonly used for eye, ear, lung, or urinary infections. Sulfa antibiotics are best taken on an empty stomach. Extra glasses of water help the kidney process the antibiotic. Sulfas are not recommended for infants under two months, or for women near the end of . Occasional side effects can include nausea or diarrhea. Stop the medication and notify your doctor at once if you develop any skin rash, bruising, jaundice (yellow color of the skin), itching, swelling, joint pain, faintness, or shortness of breath, or if you note any other new or unusual symptoms. Soap Cleansing Gently wash the wound daily using a mild soap (like Ivory, Phisoderm, Neutrogena). Use warm water, rubbing gently. Allow to dry briefly (about 10 minutes) after cleaning. Repeat this cleansing at least three times a day for the first two days and then once or twice a day. Antibiotic Ointment Protection Your wounds are such that dressing them is not practical or optional. After cleansing, you should apply a thin coating of antibiotic ointment (Bacitracin, not Neosporin) to the wounds at least three times daily. This lessens infection risk, and may decrease the amount of scarring. Use a q-tip or dull butter knife, not your finger, to apply this ointment. Any debris or ooze which builds up in the ointment should be gently rubbed off with a sterile gauze pad. Harder crusting may need to be gently scrubbed off with a clean wash cloth with soap and warm water, perhaps applying a warm, wet wash cloth to the wound for ten minutes first. Development of redness, severe itching, or blistering may mean allergy to the ointment. See the doctor. FOLLOW-UP CARE: If you have been referred to a physician for follow-up care, call the physicians office for an appointment as you were instructed or within the next two days. If you experience worsening or a significant change in your symptoms, notify the physician immediately or return to the Emergency Department at any time for re-evaluation. 1 [facility] [address] [place] [address] Open 9:00 AM - 6:00 PM 2 [facility] [address] [place] Isela Chaney Prescriptions: Cephalexin Monohydrate [Keflex 500 mg Capsule] 500 mg PO Q6H 5 Days capsule Sulfamethoxazole/Trimethoprim [Bactrim Ds Tablet] 1 each PO BID #20 tablet Forms: Smoking Cessation Education, Elevated Blood Pressure
== END 2019-02-02 15:10 | disposition home or self-care (01) ==
LOC: ER 14:14
DX: L98.9 Disorder of the skin and subcutaneous tissue, unspecified (principal); J45.909 Unspecified asthma, uncomplicated; F17.210 Nicotine dependence, cigarettes, uncomplicated; Z71.6 Tobacco abuse counseling
CPT/HCPCS: 99283; 99406